=== PATIENT | female | born 1975 | race African-American/Black ===

== ENCOUNTER 2019-06-11 10:25 | Emergency (ER) | payer OTHER ==
[~2019-06-11] VITALS: Ht 172.7 cm; Wt 106.6 kg
[2019-06-11] MEDS ORDERED: ONE-A-DAY WOMENS PO (10:57)
[2019-06-11] MEDS ORDERED: TOPROL XL25 MG PO (10:58)
[2019-06-11] MEDS ORDERED: NORVASC 2.5 MG2.5 M1 PO (10:58)
[2019-06-11] MEDS ORDERED: HYDROCHLOROTHIA25 M2 PO (10:58)
[2019-06-11 11:31] LABS: URINE BLOOD TRACE (Negative); URINE CLARITY CLEAR; URINE COLOR YELLOW; URINE GLUCOSE-RANDOM* NEGATIVE (Negative); URINE KETONES TRACE (Negative); URINE LEUKOCYTES-REFLEX NEGATIVE (Negative); URINE NITRITE-REFLEX NEGATIVE (Negative); URINE PROTEIN (DIPSTICK) 1+ (Negative)
[2019-06-11 11:36] LABS: ICTOTEST (BILI CONFIRMATORY) Negative (Negative)
[2019-06-11 11:37] LABS: URINE BILIRUBIN NEGATIVE (Negative)
[2019-06-11 11:44] LABS: ABSOLUTE NEUTROPHILS 5.5 thou/uL (1.4-8.2); BASOPHILS 0.8 % (0.0-2.0); HEMATOCRIT 42.7 % (37.0-47.0); HEMOGLOBIN 14.2 gm/dL (12.0-15.0); LYMPHOCYTES 24.8 % (24.0-44.0); MCH 28.1 pg (26.0-34.0); MCHC 33.3 g/dL (28.0-37.0); MCV 84.3 fL (80.0-100.0); PLATELET COUNT 122 thou/uL (150-400); POLYS 63.4 % (36.0-66.0); RBC 5.07 mil/uL (4.20-5.00); RDW 16.1 % (10.5-14.5); WBC 8.7 thou/uL (4.0-11.0)
[2019-06-11 12:03] LABS: BACTERIA-REFLEX 1-9 Few /HPF (None Seen); CASTS None Seen /LPF (None Seen); CRYSTALS None Seen /LPF (None Seen); SQUAMOUS >10 Many /LPF (0-3); URINE RBC None Seen /HPF (0-2); URINE WBC-REFLEX 0-5 Rare /HPF (0-5)
[2019-06-11 12:10] LABS: APTT 26.5 Seconds (24.5-32.8); D-DIMER 0.72 ug/mLFEU (0.19-0.50); INR 1.1; PROTIME 10.9 Seconds (9.3-11.4)
[2019-06-11 12:14] LABS: ALBUMIN 3.5 g/dL (3.4-5.0); ANION GAP 6 mmol/L (7-16); BUN 5 mg/dL (7-18); CALCIUM 9.4 mg/dL (8.5-10.1); CHLORIDE 90 mmol/L (98-107); CO2 32 mmol/L (21-32); CREATININE 0.7 mg/dL (0.6-1.0); GLUCOSE 159 mg/dL (74-106); MAGNESIUM 1.7 mg/dL (1.8-2.4); SGOT 42 U/L (15-37); SGPT 39 U/L (30-65); SODIUM 128 mmol/L (136-145); TOTAL BILIRUBIN 0.7 mg/dL (<0.1-1.0); TOTAL PROTEIN 8.3 g/dL (6.4-8.2); TROPONIN-I <0.06 ng/mL (<0.06)
[2019-06-11 12:17] LABS: POTASSIUM 2.5 mmol/L (3.5-5.1)
[2019-06-11 13:50] LABS: AMP/METHAMP Negative (Negative); BARBITURATES Negative (Negative); BENZODIAZEPINES Negative (Negative); COCAINE Negative (Negative); METHADONE Negative (Negative); OPIATES Negative (Negative); PCP Negative (Negative)
[2019-06-11] MEDS ORDERED: PREDNISONE 20 M20 MG PO (14:05)
[2019-06-11] MEDS ORDERED: AMOXICILLIN875 MG PO (14:05)
[2019-06-11] MEDS ORDERED: POTASSIUM20 PO (14:26)
[2019-06-11 14:28] VITALS: BP 109/71
--- NOTE | 2019-06-11 16:28 | EKG ---
[facility] [place] [address] ELECTROCARDIOGRAM REPORT Name: RUPINDER RAO Room #: DEP [facility]#: [id number] Admission: 06/11/19 Attend Phys: Discharge: 06/11/19 Date of : 75 Report #: [id number] THIS REPORT FOR: cc: NO FAMILY PHYSICIAN or PCP FAM - No family physician/PCP Asher Light MD ~ THIS REPORT FOR: //name// [facility] ED Test Date: 2019-06-11 Test Time: 11:41:30 Pat Name: RUPINDER RAO Department: Room: Gender: F [employer]: : [id number] Requested By: Greg Dupree Order Number: [id number] MD: Asher Light Measurements Intervals [place] Rate: 92 P: 7 AL: 140 QRS: 27 QRSD: 96 T: -15 QT: 360 QTc: 446 Interpretive Statements Sinus rhythm Borderline T abnormalities, inferior leads Compared to ECG 07/26/2010 01:18:32 T-wave abnormality now present Electronically Signed On 06-11-2019 16:27:26 CDT by Asher Light [email or web address] <ELECTRONICALLY SIGNED> By: Asher Light MD 06/11/19 1627 1141 1141 Asher Light MD /EPI
== END 2019-06-11 14:33 | disposition home or self-care (01) ==
LOC: ER 10:25
PROVIDERS: Emergency Medicine
DX: J06.9 Acute upper respiratory infection, unspecified (principal); J02.9 Acute pharyngitis, unspecified; J04.0 Acute laryngitis; I10 Essential (primary) hypertension; F17.210 Nicotine dependence, cigarettes, uncomplicated; Z79.899 Other long term (current) drug therapy